=== PATIENT | male | born 1945 | race Caucasian/White ===

== ENCOUNTER 2019-08-17 06:28 | Day surgery (SDC) | payer OTHER, SELFPAY ==
[2019-08-16 13:23] VITALS: BMI 20.3
[2019-08-17 06:37] VITALS: BP 172/93; PULSE 85; RESP 18; TEMP 36.9; O2SAT 98
--- NOTE | 2019-08-17 06:53 | ANES.PREANES ---
Pre-Anesthetic Assessment Pre-Anesthetic Assessment: Height/Weight: Height 1.73 m Weight 60.781 kg Temp Pulse Resp BP Pulse Ox 98.4 F 85 18 172/93 98 08/17/19 06:37 08/17/19 06:37 08/17/19 06:37 08/17/19 06:37 08/17/19 06:37 Preop Diagnosis: Anemia Proposed Procedure: Operation Date: 08/17/19 07:45 Proposed Procedures p EGD 27470 D64.9(Not Applicable) - iWllis Torres MD Familial anesthetic complications: none Last intake: Intake Last Liquid Date 08/16/19 Last Liquid Time 19:00 Last Solid Date 08/16/19 Last Solid Time 19:00 Social: Social History: No alcohol (history) and No tobacco (history) Exam: Pre-Anes Outpt Exam: alert, oriented x 3, clear to auscultation bilaterally and regular rate & rhythm Airway: Submandibular: WNL Cervical ROM: WNL MP: 1 Dentition: Full History/ROS: Other Pulmonary: Pulmonary: Sleep apnea (cpap) CV/HEM: CV/HEM: CAD, HTN, Murmur and PVD : : Chronic renal failure (stage 3) Hepatic: Hepatic: None reported GI: GI: None reported Metabolic: Metabolic: DM (201 this am) and Hyperlipidemia Musc/skel: Musc/skel: None reported Neuropsych: Neuropsych: None reported Anesthetic Plan: ASA status: II Anesthesia: MAC Risk of > 500 ml blood loss (7ml/kg in children): No PFSH Anesthesia PFSH: Medical History (Updated 08/12/19 @ 08:03 by Willis Torres MD) Anemia (Acute) Social History Smoking and tobacco status: never smoked Second hand smoke exposure: No Alcohol intake: current Alcohol intake frequency: holidays/special occasions only Alcohol type: beer Desire information about alcohol rehabilitation?: No Adopted: No Caregiver/support person: Yes Lives independently: Yes Household members: spouse Housing: House Marital status: Highest education level completed: High School Graduate service: Yes Current occupational status: retired Current occupational exposures/hazards: No Pets and animals: No History of recent travel: No Leisure activites: sports, games and hunting Sexually active: Yes Current gender identity: Male Marge/Jain: Oriental Orthodox Special marge needs: No Agree to transfusion: No Financial difficulty paying for basics: Decline to Answer Data Anesthesia Cardiac Studies: No Data to Display
[2019-08-17 06:56] LABS: Glucose Point of Care 201 mg/dL (70-110)
[2019-08-17] MEDS: sodium chloride 0.9% 1,000 ML 30 ML (07:02)
--- NOTE | 2019-08-17 07:16 | PM.HPUD ---
H&P update H&P Update: DATE OF SURGERY/PROCEDURE: 08/17/19 DATE H&P PERFORMED: 08/11/19 H&P UPDATE INFORMATION: H&P completed within last 30 days and No changes to prior documentation PREOP DIAGNOSIS: ANEMIA PLANNED PROCEDURE: Operation Date: 08/17/19 07:45 Proposed Procedures p EGD 21810 D64.9(Not Applicable) - Willis Torres MD Full H&P Perinent History: Medical/Surgical History: Medical History (Updated 08/12/19 @ 08:03 by Willis Torres MD) Anemia (Acute) Family History: Family History (Updated 08/11/19 @ 11:03 by Ivelisse Eckert RN) Denies family history of Anesthesia complication Bleeding disorder Social History: Social History Smoking and tobacco status: never smoked Second hand smoke exposure: No Alcohol intake: current Alcohol intake frequency: holidays/special occasions only Alcohol type: beer Desire information about alcohol rehabilitation?: No Adopted: No Caregiver/support person: Yes Lives independently: Yes Household members: spouse Housing: House Marital status: Highest education level completed: High School Graduate service: Yes Current occupational status: retired Current occupational exposures/hazards: No Pets and animals: No History of recent travel: No Leisure activites: sports, games and hunting Sexually active: Yes Current gender identity: Male Marge/Judaism: Islam Special marge needs: No Agree to transfusion: No Financial difficulty paying for basics: Decline to Answer
[2019-08-17 07:28] VITALS: BP 116/79; PULSE 74; RESP 16; TEMP 36.3; O2SAT 95
[2019-08-17 07:40] VITALS: BP 118/68; PULSE 77; RESP 18; TEMP 36.3; O2SAT 100
--- NOTE | 2019-08-17 07:56 | ANE.PACU ---
 Inpatient post-anesthesia follow up: Airway intact: Yes Vital signs: Temperature 97.3 F Pulse Rate [Bilate ral Radial] 74 Respiratory Rate 16 Blood Pressure [Le ft Arm] 116/79 Pulse Oximetry 95 Oxygen Delivery Me thod Nasal Cannula Oxygen Flow Rate 2 Fraction of Inspir ed Oxygen Hydration adequate: Yes Nausea and vomiting: No Pain level: 1 Mental status: Baseline
== END 2019-08-17 08:03 | disposition home or self-care (01) ==
PROVIDERS: Family Provider Emergency Medicine Emergency Medical Services; PCP Emergency Medicine Emergency Medical Services; Visit Provider Surgery
PROC: 0DJ08ZZ Inspection of Upper Intestinal Tract, Via Natural or Artificial Opening Endoscopic (ICD-10-PCS; CPT 43235; principal; 2019-08-17 07:45)
DX: D64.9 Anemia, unspecified (principal); K29.50 Unspecified chronic gastritis without bleeding; K31.7 Polyp of stomach and duodenum; G47.30 Sleep apnea, unspecified; I25.10 Atherosclerotic heart disease of native coronary artery without angina pectoris; E11.22 Type 2 diabetes mellitus with diabetic chronic kidney disease; I12.9 Hypertensive chronic kidney disease with stage 1 through stage 4 chronic kidney disease, or unspecified chronic kidney disease; N18.3 Chronic kidney disease, stage 3 (moderate); E78.5 Hyperlipidemia, unspecified; K21.9 Gastro-esophageal reflux disease without esophagitis
CPT/HCPCS: 12345; 36416; 43239; 82962; 88305; 96365; J2704; J7030

== ENCOUNTER 2019-11-30 11:35 | Outpatient (CLI) | payer MEDICARE, SELFPAY ==
[2019-11-30 12:11] LABS: Basophils % 0.5 %; Eosinophils # 0.2 10^3/uL (0.0-0.8); Eosinophils % 2.6 %; Hematocrit 34.5 % (42.0-52.0); Hemoglobin 10.4 g/dL (11.7-16.6); Lymphocytes % 17.5 %; Mean Corpuscular HGB Conc 30.1 g/dL (30.0-36.0); Mean Corpuscular Hemoglobin 26.7 pg (28.0-34.0); Mean Corpuscular Volume 88.7 fL (80-94); Monocytes # 0.8 10^3/uL (0.2-0.9); Monocytes % 13.5 %; Neutrophils # 3.7 10^3/uL (1.8-7.7); Neutrophils % 65.5 %; Nucleated Red Blood Cells % 0 %; Platelet Count 186 10^3/cmm (130-400); Red Blood Count 3.89 10^6/uL (4.1-5.3); Red Cell Distribution Width 17.1 % (12.1-15.1); White Blood Count 5.7 10^3/uL (4.0-10.0)
[2019-11-30 12:20] LABS: Albumin Level 4.5 g/dL (3.5-5.2); Anion Gap 18.4 (5-19); Blood Urea Nitrogen 26 mg/dL (8-23); Calcium 9.3 mg/dL (8.5-10.5); Carbon Dioxide 23 mmol/L (22-29); Chloride 99 mmol/L (98-107); Glucose 153 mg/dL (65-115); Phosphorus 3.6 mg/dL (2.5-4.5); Potassium 5.4 mmol/L (3.5-5.1); Sodium 135 mmol/L (136-145)
[2019-11-30 12:34] LABS: Creatinine Urine, Random 24 mg/dL (39-259); Microalbumin Random Urine 2 ug/dL (0-20)
[2019-11-30 12:35] LABS: Microalbum Creatinine Ratio Ur 83 mg/dL (0-20)
[2019-11-30 13:28] LABS: Calcium 9.5 mg/dL (8.5-10.5); Parathyroid Hormone 96.1 pg/mL (15-65)
== END 2019-11-30 11:36 | disposition home or self-care (01) ==
LOC: LAB 11:41
PROVIDERS: Family Provider Emergency Medicine Emergency Medical Services; PCP Emergency Medicine Emergency Medical Services; Visit Provider Internal Medicine Nephrology
DX: N18.3 Chronic kidney disease, stage 3 (moderate) (principal)
CPT/HCPCS: 36415; 80069; 82044; 82310; 83970; 85025

== ENCOUNTER 2019-12-15 10:14 | Outpatient (CLI) | payer OTHER, SELFPAY ==
[2019-12-15 12:51] VITALS: O2SAT 98
--- NOTE | 2019-12-15 14:11 | PFTS_ITS ---
Date of Study:12/15/19 Date of Dictation: MECHANICS: Forced vital capacity (FVC) is reduced. Forced expiratory volume in one second (FEV1) is reduced. FEV1/FVC is reduced. FLOW VOLUME LOOP: Reduced flow at all lung volumes. LUNG VOLUMES: Total lung capacity (TLC) is normal. Residual volume (RV) is normal. DIFFUSING CAPACITY FOR CARBON MONOXIDE: Moderate reduced. INTERPRETATION: The pulmonary function tests are consistent with moderate obstruction and mild restriction. The lung volumes are normal this could be due to the combined obstructive and restrictive lung disease. Gas exchange (DLCO) is moderately reduced. MTDD
== END 2019-12-15 10:15 | disposition home or self-care (01) ==
LOC: RT 10:17
PROVIDERS: PCP Emergency Medicine Emergency Medical Services; Visit Provider Internal Medicine Critical Care Medicine
DX: R06.02 Shortness of breath (principal)
CPT/HCPCS: 94060; 94726; 94729; J7611

== ENCOUNTER 2019-12-15 10:17 | Outpatient (CLI) | payer OTHER, SELFPAY ==
[2019-12-15 11:49] LABS: Anion Gap 20.3 (5-19); Blood Urea Nitrogen 37 mg/dL (8-23); Calcium 10.3 mg/dL (8.5-10.5); Carbon Dioxide 24 mmol/L (22-29); Chloride 94 mmol/L (98-107); Glucose 240 mg/dL (65-115); Osmolality Calculated 281 mOsm/kg (285-295); Potassium 5.3 mmol/L (3.5-5.1); Sodium 133 mmol/L (136-145)
== END 2019-12-15 10:18 | disposition home or self-care (01) ==
LOC: LAB 10:18
PROVIDERS: PCP Emergency Medicine Emergency Medical Services; Visit Provider Internal Medicine Cardiovascular Disease
DX: R60.0 Localized edema (principal)
CPT/HCPCS: 36415; 80048

== ENCOUNTER 2020-02-02 09:21 | Outpatient (CLI) | payer MEDICARE, SELFPAY ==
--- NOTE | 2020-02-02 09:25 | NMCV_ITS ---
NM antoni perf SPECT r/s* [id number] Jatinder Moralez Age: 74 Gender: M : 1945 Exam Date: 02/02/2020 10:08 Ordering Phys: Alfonso Stinson MD Technologist: CRESECNIO Edwards Exam Location: [facility] Indications: MARTINEZ STRESS TEST Please see separate stress test report in [facility] for full findings IMAGE PROTOCOL Rest/Stress 1 Lexiscan Day Radiopharmaceutical Dose (mCi) Administration Site Administered by Rest: Tc-99m 11.0 IV CRESENCIO Edwards Sestamibi Stress:Tc-99m 32.7 IV CRESENCIO Haq Sestamibi Rest: 60 Discovery 630 Stress: 30 Discovery 630 0.4mg Lexiscan. Images obtained in supine and prone position. SPECT RESULTS Technical Quality: Excellent Raw Data Analysis: Normal Image Corrections: No attenuation or motion correction applied Summed Stress Score: 15 Summed Rest Score: 13 Summed Difference Score: 4 PERFUSION FINDINGS Medium sized perfusion abnormality of moderate severity of entire inferior, mid inferolateral and apical lateral anand with mild reversibility in mid to apical inferolateral anand. FUNCTIONAL RESULTS (calculated via Gated SPECT) Stress Image LV EF (%): 64 Stress EDV (mL):159 TID: 0.85 Stress ESV (mL):58 FUNCTIONAL FINDINGS: The left ventricle is normal in size. Transient Ischemia Dilatation of 0.85. There is normal left ventricular systolic function. The left ventricular ejection fraction is normal with a value of 64%. There is normal left ventricular wall thickening. Increased end diastolic volume. IMPRESSIONS 1. Medium sized perfusion abnormality of moderate severity of entire inferior, mid inferolateral and apical lateral anand with mild reversibility in mid to apical inferolateral anand. 2. 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 3. Overall left ventricular systolic function is normal without regional wall motion abnormalities. 4. The left ventricular ejection fraction is normal with a value of 64%. 5. No prior similar studies to compare. Maya Dang MD (Electronically Signed) Final Date: 03 February 2020 17:49 S
--- NOTE | 2020-02-02 09:25 | ECG_ITS ---
[facility] Test Date: 2020-02-02 Pat Name: Jatinder Moralez Department: Room: Gender: Male Director Experimental Medicine: : 1945 Requested By: Alfonso Cleary Order Number: [id number] Garcia MD: Lashell Constantino M.D. Interpretive Statements NAME OF STUDY: LEXISCAN SESTAMIBI STRESS TEST INDICATION: MARTINEZ, NOTE: Please note that this is the electrocardiogram portion of the Lexiscan/Sestamibi stress test. The perfusion scan will be documented separately. DATA: Baseline heart rate was 72 beats per minute. Baseline blood pressure was 143/69 millimeters of mercury. Target heart rate was 146. Maximum heart rate achieved was 114. which was 78 % of the predicted target heart rate. Maximum blood pressure was 173/87 millimeters of mercury. The reason for ending the test was completion of the protocol. The patient did not experience any symptoms. ELECTROCARDIOGRAM: BASELINE: Sinus rhythm. Right axis. Interventricular conduction delay frequent PVCs were noted After Lexiscan injection, ST-T depression in the inferolateral leads was noted CONCLUSION: Please note due to baseline abnormality of the EKG specificity and sensitivity of the EKG portion of LexiScan MIBI stress test will be low 1. EKG is equivocal for ischemia 2. Lexiscan injection unremarkable. 3. Perfusion scan will be documented separately. Electronically Signed On 02-02-2020 22:16:08 CDT by Lashell Constantino M.D. [id number]
[2020-02-02 09:38] VITALS: BMI 29.5
[2020-02-02 12:01] VITALS: BP 132/56; PULSE 88
== END 2020-02-02 09:22 | disposition home or self-care (01) ==
PROVIDERS: PCP Emergency Medicine Emergency Medical Services; Visit Provider Internal Medicine Cardiovascular Disease
DX: R06.09 Other forms of dyspnea (principal)
CPT/HCPCS: 78452; 93017; A9500; J2785

== ENCOUNTER 2020-03-09 11:10 | Outpatient (CLI) | payer MEDICARE, SELFPAY ==
[2020-03-09 13:01] LABS: Blood Urea Nitrogen 36 mg/dL (8-23); Calcium 9.5 mg/dL (8.5-10.5); Carbon Dioxide 24 mmol/L (22-29); Chloride 98 mmol/L (98-107); Glucose 168 mg/dL (65-115); Osmolality Calculated 279 mOsm/kg (285-295); Sodium 134 mmol/L (136-145)
== END 2020-03-09 11:11 | disposition home or self-care (01) ==
LOC: LAB 11:27
PROVIDERS: PCP Emergency Medicine Emergency Medical Services; Visit Provider Internal Medicine Cardiovascular Disease
DX: R60.0 Localized edema (principal)
CPT/HCPCS: 80048

== ENCOUNTER 2020-03-22 10:57 | Outpatient (CLI) | payer MEDICARE, SELFPAY ==
[2020-03-22 12:13] LABS: Basophils % 0.5 %; Eosinophils # 0.2 10^3/uL (0.0-0.8); Eosinophils % 2.1 %; Hematocrit 34.7 % (42.0-52.0); Hemoglobin 9.7 g/dL (11.7-16.6); Lymphocytes # 1.1 10^3/uL (0.8-4.8); Mean Corpuscular Hemoglobin 24.6 pg (28.0-34.0); Mean Corpuscular Volume 88.1 fL (80-94); Mean Platelet Volume 12.1 fL (7.4-10.4); Monocytes # 0.8 10^3/uL (0.2-0.9); Monocytes % 10.8 %; Neutrophils # 5.62 10^3/uL (1.8-7.7); Neutrophils % 72.1 %; Nucleated Red Blood Cells % 0 %; Platelet Count 190 10^3/cmm (130-400); Red Blood Count 3.94 10^6/uL (4.1-5.3); Red Cell Distribution Width 19.9 % (12.1-15.1); White Blood Count 7.8 10^3/uL (4.0-10.0)
[2020-03-22 13:15] LABS: Anion Gap 15.3 (5-19); Blood Urea Nitrogen 45 mg/dL (8-23); Calcium 8.9 mg/dL (8.5-10.5); Carbon Dioxide 26 mmol/L (22-29); Chloride 102 mmol/L (98-107); Glucose 118 mg/dL (65-115); NT Pro B Type Natriuretic Pept 2069 pg/mL (0-125); Osmolality Calculated 285 mOsm/kg (285-295); Potassium 5.3 mmol/L (3.5-5.1); Sodium 138 mmol/L (136-145)
== END 2020-03-22 10:58 | disposition home or self-care (01) ==
LOC: LAB 11:03
PROVIDERS: PCP Emergency Medicine Emergency Medical Services; Visit Provider Thoracic Surgery (Cardiothoracic Vascular Surgery)
DX: Z95.2 Presence of prosthetic heart valve (principal)
CPT/HCPCS: 36415; 80048; 83880; 85025

== ENCOUNTER 2020-04-18 13:48 | Outpatient (CLI) | payer MEDICARE, SELFPAY ==
[2020-04-18 14:43] LABS: Basophils # 0.1 10^3/uL (0.0-0.1); Basophils % 0.8 %; Eosinophils # 0.3 10^3/uL (0.0-0.8); Eosinophils % 3.4 %; Hematocrit 33.1 % (42.0-52.0); Hemoglobin 9.4 g/dL (11.7-16.6); Lymphocytes # 1.1 10^3/uL (0.8-4.8); Lymphocytes % 12.2 %; Mean Corpuscular HGB Conc 28.4 g/dL (30.0-36.0); Mean Corpuscular Hemoglobin 24.8 pg (28.0-34.0); Mean Corpuscular Volume 87.3 fL (80-94); Mean Platelet Volume 11.1 fL (7.4-10.4); Neutrophils # 6.68 10^3/uL (1.8-7.7); Nucleated Red Blood Cells % 0 %; Platelet Count 291 10^3/cmm (130-400); Red Blood Count 3.79 10^6/uL (4.1-5.3); Red Cell Distribution Width 17.3 % (12.1-15.1); White Blood Count 9.3 10^3/uL (4.0-10.0)
[2020-04-18 14:55] LABS: Anion Gap 17.4 (5-19); Blood Urea Nitrogen 31 mg/dL (8-23); Calcium 8.7 mg/dL (8.5-10.5); Carbon Dioxide 22 mmol/L (22-29); Chloride 99 mmol/L (98-107); Glucose 193 mg/dL (65-115); Osmolality Calculated 288 mOsm/kg (285-295); Potassium 5.4 mmol/L (3.5-5.1); Sodium 133 mmol/L (136-145)
== END 2020-04-18 13:49 | disposition home or self-care (01) ==
LOC: LAB 13:56
PROVIDERS: PCP Emergency Medicine Emergency Medical Services; Visit Provider Thoracic Surgery (Cardiothoracic Vascular Surgery)
DX: Z95.2 Presence of prosthetic heart valve (principal); Z79.01 Long term (current) use of anticoagulants
CPT/HCPCS: 36415; 80048; 85025; 85610

== ENCOUNTER 2020-10-24 14:46 | Outpatient (CLI) | payer MEDICARE, SELFPAY ==
[2020-10-24 15:53] LABS: Basophils # 0.1 10^3/uL (0.0-0.1); Basophils % 0.7 %; Eosinophils # 0.1 10^3/uL (0.0-0.8); Eosinophils % 1.9 %; Hematocrit 42.9 % (42.0-52.0); Hemoglobin 13.1 g/dL (11.7-16.6); Lymphocytes # 1.6 10^3/uL (0.8-4.8); Lymphocytes % 21.8 %; Mean Corpuscular HGB Conc 30.5 g/dL (30.0-36.0); Mean Corpuscular Hemoglobin 27.3 pg (28.0-34.0); Mean Corpuscular Volume 89.6 fL (80-94); Mean Platelet Volume 11.3 fL (7.4-10.4); Monocytes # 0.8 10^3/uL (0.2-0.9); Monocytes % 10.3 %; Neutrophils % 64.7 %; Nucleated Red Blood Cells % 0 %; Platelet Count 189 10^3/cmm (130-400); Red Blood Count 4.79 10^6/uL (4.1-5.3); Red Cell Distribution Width 15.6 % (12.1-15.1); White Blood Count 7.3 10^3/uL (4.0-10.0)
[2020-10-24 16:31] LABS: Creatinine Urine, Random 28 mg/dL (39-259); Microalbumin Random Urine 4 ug/dL (0-20)
[2020-10-24 16:32] LABS: Anion Gap 14.8 (5-19); Blood Urea Nitrogen 30 mg/dL (8-23); Calcium 8.9 mg/dL (8.5-10.5); Carbon Dioxide 23 mmol/L (22-29); Chloride 101 mmol/L (98-107); Glucose 98 mg/dL (65-115); Phosphorus 3.3 mg/dL (2.5-4.5); Potassium 4.8 mmol/L (3.5-5.1); Sodium 134 mmol/L (136-145)
[2020-10-24 16:53] LABS: Microalbum Creatinine Ratio Ur 143 mg/dL (0-20)
[2020-10-24 16:56] LABS: Calcium 9.2 mg/dL (8.5-10.5); Parathyroid Hormone 156.6 pg/mL (15-65)
== END 2020-10-24 14:47 | disposition home or self-care (01) ==
PROVIDERS: PCP Emergency Medicine Emergency Medical Services; Visit Provider Internal Medicine Nephrology
DX: N18.4 Chronic kidney disease, stage 4 (severe) (principal)
CPT/HCPCS: 36415; 80069; 82044; 82310; 83970; 85025

== ENCOUNTER → 2022-05-07 10:24 | Outpatient (BNVA) | payer OTHER, SELFPAY | PROVIDERS: PCP Emergency Medicine Emergency Medical Services; Visit Provider Specialist | DX: M70.61 Trochanteric bursitis, right hip (principal); M16.0 Bilateral primary osteoarthritis of hip | CPT/HCPCS: 73502; 99203; 99204 ==

== ENCOUNTER 2022-05-14 06:00 | Outpatient (RCR) | payer OTHER, SELFPAY | END 2022-05-26 23:59 | disposition home or self-care (01) | LOC: TPT 06:00 | PROVIDERS: PCP Emergency Medicine Emergency Medical Services; Visit Provider Specialist | DX: M70.61 Trochanteric bursitis, right hip (principal) | CPT/HCPCS: 97110; 97162 ==

== ENCOUNTER 2022-05-27 06:00 | Outpatient (RCR) | payer OTHER, SELFPAY | END 2022-06-25 23:59 | disposition home or self-care (01) | LOC: TPT 06:00 | PROVIDERS: PCP Emergency Medicine Emergency Medical Services; Visit Provider Specialist | DX: M70.61 Trochanteric bursitis, right hip (principal) | CPT/HCPCS: 97110 ==

== ENCOUNTER 2022-07-24 10:47 | Emergency (ER) | payer OTHER, SELFPAY ==
[2022-07-24 11:11] VITALS: BP 133/69; PULSE 79; RESP 18; TEMP 37.1; O2SAT 93; BMI 31.0
--- NOTE | 2022-07-24 11:31 | XR_ITS ---
WS: [id number] Portable AP upright chest, 07/24/2022 Clinical Data: cough, fever Comparison: PA chest, 01/23/2018. Findings: There are patchy bilateral lower lobe pulmonary opacities which could represent atelectasis and/or pneumonia. There is a small right pleural effusion No nodules or masses are seen. The heart i s normal. The pulmonary vascularity is not increased. No pneumothorax is seen. The aortic arch and de scending thoracic aorta are minimally tortuous. Midline sternotomy sutures are seen along with an art ificial cardiac valve. XR/XR chest 1V portable [id number] Impression: 1. Patchy bilateral lower lobe pulmonary opacities which could represent atelec tasis and/or pneumonia. 2. Small right pleural effusion. 3. Atherosclerosis and artificial cardiac valve.
[2022-07-24 12:05] LABS: Basophils % 0.2 %; Hematocrit 45.1 % (42.0-52.0); Hemoglobin 13.7 g/dL (11.7-16.6); Lymphocytes # 0.8 10^3/uL (0.8-4.8); Lymphocytes % 18.7 %; Mean Corpuscular HGB Conc 30.4 g/dL (30.0-36.0); Mean Corpuscular Hemoglobin 26.7 pg (28.0-34.0); Mean Corpuscular Volume 87.9 fl (80-94); Monocytes # 0.4 10^3/uL (0.2-0.9); Monocytes % 9.2 %; Neutrophils # 3.14 10^3/uL (1.8-7.7); Neutrophils % 70.6 %; Nucleated Red Blood Cells % 0 %; Platelet Count 110 10^3/cmm (130-400); Red Blood Count 5.13 10^6/uL (4.1-5.3); Red Cell Distribution Width 16.8 % (12.1-15.1); White Blood Count 4.5 10^3/uL (4.0-10.0)
[2022-07-24 12:21] LABS: Alanine Aminotransferase 29 U/L (0-41); Albumin Level 3.4 g/dL (3.5-5.2); Alkaline Phosphatase 89 U/L (40-130); Aspartate Amino Transferase 40 U/L (0-40); Blood Urea Nitrogen 25 mg/dL (8-23); Carbon Dioxide 19 mmol/L (22-29); Chloride 101 mmol/L (98-107); Globulin 4.1 g/dL (1.3-4.6); Glucose 225 mg/dL (65-115); Osmolality Calculated 281 mOsm/kg (285-295); Sodium 130 mmol/L (136-145); Total Bilirubin 0.3 mg/dL (0.15-1.2); Total Protein 7.5 g/dL (6.6-8.7)
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
[2022-07-24] MEDS: sodium chloride 0.9% 1,000 ML 999 ML IV (14:36)
[2022-07-24] MEDS: doxycycline 100 mg Tablet PO (14:58)
[2022-07-24 15:56] LABS: Anion Gap 16.2 (5-19); Blood Urea Nitrogen 28 mg/dL (8-23); Calcium 8.6 mg/dL (8.5-10.5); Carbon Dioxide 23 mmol/L (22-29); Chloride 102 mmol/L (98-107); Glucose 239 mg/dL (65-115); Osmolality Calculated 295 mOsm/kg (285-295); Potassium 5.2 mmol/L (3.5-5.1); Sodium 136 mmol/L (136-145)
[2022-07-24 16:11] LABS: Glucose Point of Care 261 mg/dL (70-110)
[2022-07-24] MEDS: acetaminophen 500 mg Tablet 1000 MG PO (16:20)
[2022-07-24] MEDS: albuterol 8 gm MDI 2 PUFF INHALATION (17:02)
[2022-07-24 17:04] VITALS: PULSE 76; RESP 18; O2SAT 95
[2022-07-24 17:18] VITALS: BP 184/70; PULSE 91; RESP 18; O2SAT 95
== END 2022-07-24 17:27 | disposition home or self-care (01) ==
PROVIDERS: Emergency Provider Nurse Practitioner Family; PCP Emergency Medicine Emergency Medical Services
DX: J18.9 Pneumonia, unspecified organism (principal); E87.5 Hyperkalemia; R74.8 Abnormal levels of other serum enzymes; Z79.84 Long term (current) use of oral hypoglycemic drugs; Z79.02 Long term (current) use of antithrombotics/antiplatelets; Z79.82 Long term (current) use of aspirin; Z79.4 Long term (current) use of insulin; Z87.891 Personal history of nicotine dependence; I25.10 Atherosclerotic heart disease of native coronary artery without angina pectoris; E11.9 Type 2 diabetes mellitus without complications; E72.3 Disorders of lysine and hydroxylysine metabolism; Z95.1 Presence of aortocoronary bypass graft
CPT/HCPCS: 36415; 36416; 71045; 80048; 80053; 82962; 85025; 94640; 99284; J3535; J7030

== ENCOUNTER 2023-06-08 11:50 | Outpatient (CLI) | payer OTHER, SELFPAY ==
--- NOTE | 2023-06-08 11:54 | US_ITS ---
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 TECHNIQUE: 2-D and color Doppler imaging of the kidney submitted. Right kidney: 10.2 cm x 5.6 cm x 4.8 cm. Cortex: 1.0 cm Normal echogenicity with no hydronephrosis or mass. Kidney measures more normal in length as compared to the prior study. No atrophy. Left kidney: 10.7 cm x 5.0 cm x 5.5 cm. Cortex: 1.0 cm Normal echogenicity with no hydronephrosis or mass. Aorta: Normal. Urinary Bladder: Minimal distention. IMPRESSION: Normal renal ultrasound.
== END 2023-06-08 11:51 | disposition home or self-care (01) ==
LOC: RAD 11:50
PROVIDERS: PCP Emergency Medicine Emergency Medical Services; Visit Provider Internal Medicine Nephrology
DX: N18.32 Chronic kidney disease, stage 3b (principal); N17.9 Acute kidney failure, unspecified
CPT/HCPCS: 76770